=== PATIENT | male | born 1940 | race Caucasian/White ===

== ENCOUNTER 2017-01-01 07:26 | Day surgery (SDC) | payer MEDICARE ==
[~2017-01-01 07:26] MED LIST: Buffered Lidocaine 0.9% SYRIN* 5 ML/SYR SYRINGE INTRADERM ONE
[2017-01-01] MEDS ORDERED: ceFAZolin 2 GM in 100 MLS NS (*) BAG IVPB ONE (08:12)
[2017-01-01] MEDS ORDERED: Mineral Oil Sterile, TOPICAL* 25 ML BTL ONE (08:48)
[2017-01-01] MEDS ORDERED: Methylene Blue 0.5 %* 50 MG/10 ML AMP IV ONE (08:48)
[2017-01-01] MEDS ORDERED: KETAMINE HCL* 50 MG/ML 10 ML VIAL ONE (08:49)
[2017-01-01] MEDS ORDERED: Midazolam* 1 MG/ML 2 ML VIAL (2 MG) ONE (08:50)
[2017-01-01] MEDS ORDERED: Propofol* 10 MG/ML 20 ML BTL IV PUSH ONE ×2 (08:51→10:07)
[2017-01-01] MEDS ORDERED: Glycopyrrolate IV* 0.2 MG/ML 1 ML VIAL ONE (08:52)
[2017-01-01] MEDS ORDERED: Lidocaine 2% EPI 1:200000 MPF* 20 ML VIAL ONE (08:55)
[2017-01-01] MEDS ORDERED: Bupivacaine 0.5% W/EPI SDV* 10 ML VIAL INJ ONE (08:55)
[2017-01-01 11:00] VITALS: BP 104/48
== END 2017-01-01 11:03 | disposition home or self-care (01) ==
LOC: OR 07:26
PROVIDERS: ATTEND Plastic Surgery
DX: D04.4 Carcinoma in situ of skin of scalp and neck (principal); E11.9 Type 2 diabetes mellitus without complications; Z79.4 Long term (current) use of insulin; Z94.4 Liver transplant status; I10 Essential (primary) hypertension; J45.909 Unspecified asthma, uncomplicated
CPT/HCPCS: 88305; 88331; 88332; A9270-GY; J2250; J2704

== ENCOUNTER 2017-12-15 11:45 | Emergency (ER) | payer MEDICARE ==
--- NOTE | 2017-12-15 12:42 | ED ---
Skin Complaint - HPI Summary HPI Summary: Patient presents with Lt index finger redness, swelling and itching since Saturday. He reports he was stung by something however he is not sure what that was. Was pushing a piece of equipment into his shed when smoething stung him in the finger quickly - felt sharp pain but nothing left behind. His symptoms have not gotten worse but they are the same and so he came in to get checked out today - was itching alot last night. Denies fever, chills, difficulty breathing or swallowing. He had concerns that a tick may be causing this however he now understands that a tick needs to be attached for a period of time in order to spread lyme - he voices understanding. - History of Current Complaint Chief Complaint: EDRashSkinAbscess Time Seen by Provider: 12/15/17 12:12 Stated Complaint: POSS INSECT BITE ON LT FINGER Hx Obtained From: Patient, Family/Loom Setter - Pain Intensity: 0 - Allergy/Home Medications Allergies/Adverse Reactions: Allergies Allergy/AdvReac Type Severity Reaction Status Date / Time No Known Allergies Allergy Verified 12/15/17 11:53 Home Medications: Home Medications Multivit-Min/FA/Lutein/Zeaxant [Icaps Mv Tablet] 1 each PO DAILY 12/15/17 [ History Confirmed 12/15/17] PMH/Surg Hx/FS Hx/Imm Hx Previously Healthy: Yes Endocrine/Hematology History: Reports: Hx Diabetes - INSULIN DEPENDENT Cardiovascular History: Reports: Hx Hypertension - pt. 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 STACK. RIGHT HERNIA REPAIR 01/1995. BILAT CATARACTS REMOVED 2002. 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 SKIN CANCER REMOVED [facility] [place] Hx Anesthesia Reactions: No - Immunization History Immunizations Up to Date: Yes Infectious Disease History: No Infectious Disease History: Reports: Hx Shingles - 1995 Denies: Traveled Outside the [place] in Last 30 Days - Social History Occupation: Retired Lives: With Family Alcohol Use: None Hx Substance Use: No Substance Use Type: Reports: None Hx Tobacco Use: No Smoking Status (MU): Never Smoked Tobacco Type: Cigars Review of Systems Constitutional: Negative Negative: Fever, Chills, Fatigue Negative: Sore Throat Negative: Shortness Of Breath Negative: Vomiting, Nausea Positive: no symptoms reported Positive: Edema - mild. Negative: Arthralgia, Myalgia, Decreased ROM Positive: Rash Neurological: Negative Positive: Anxious All Other Systems Reviewed And Are Negative: Yes Physical Exam Triage Information Reviewed: Yes Vital Signs On Initial Exam: Initial Vitals Temp Pulse Resp BP Pulse Ox 97.9 F 75 16 113/51 99 12/15/17 11:53 12/15/17 11:53 12/15/17 11:53 12/15/17 11:53 12/15/17 11:53 Vital Signs Reviewed: Yes Appearance: Positive: Well-Appearing, No Pain Distress, Well-Nourished Skin: Positive: Warm, Skin Color Reflects Adequate Perfusion, Dry - 2mm area of macular tissue (pt reports this was the site of entry - had small blister here day 1) - dorsum of Lt index finger and MCP are w/ mild fever to touch, focal mild tissue edema - no skin breakdown - FROM, no streaking, NTTP ENT: Positive: Hearing grossly normal Respiratory/Lung Sounds: Positive: Breath Sounds Present Cardiovascular: Positive: Pulses are Symmetrical in both Upper and Lower Extremities Musculoskeletal: Positive: Normal, Strength/ROM Intact Neurological: Positive: Sensory/Motor Intact Psychiatric: Positive: Normal - concerned but calm and polite Diagnostics - Vital Signs Vital Signs Temp Pulse Resp BP Pulse Ox 12/15/17 11:53 97.9 F 75 16 113/51 99 - Laboratory Lab Statement: Any lab studies that have been ordered have been reviewed, and results considered in the medical decision making process. Course/Dx - Course Course Of Treatment: Given his other medical issue and localized nature of his condition, will tx w/ rest, elevation, ice nad topical anti-itch cream such as diphenhydramine. F/u w/ PCP this week to monitor for of infection as he has diabetes - no infection today. - Diagnoses Provider Diagnoses: Insect bite of finger with local reaction Discharge - Sign-Out/Discharge Documenting (check all that apply): Patient Departure - Discharge Plan Condition: Stable Disposition: HOME Patient Education Materials: Insect Bite or Sting (ED) Referrals: Jefe To MD [Primary Care Provider] - Additional Instructions: Rest, ice, elevate, soak in cool epsom salt water and/or apply anti-itch cream ( ie. calamine topical, etc) Monitor for spread of redness, fever, chills, pain with bending finger - if so, seek medical attention right away. Otherwise, follow-up with PCP this week if symptoms persist. - Billing Disposition and Condition Condition: STABLE Disposition: Home
[2017-12-15 13:18] VITALS: BP 114/60
== END 2017-12-15 13:17 | disposition home or self-care (01) ==
LOC: ED 11:45
DX: S60.461A Insect bite (nonvenomous) of left index finger, initial encounter (principal); W57.XXXA Bitten or stung by nonvenomous insect and other nonvenomous arthropods, initial encounter; Y93.9 Activity, unspecified; Y92.9 Unspecified place or not applicable; E11.9 Type 2 diabetes mellitus without complications; Z79.4 Long term (current) use of insulin; I10 Essential (primary) hypertension; F03.90 Unspecified dementia, unspecified severity, without behavioral disturbance, psychotic disturbance, mood disturbance, and anxiety; Z94.4 Liver transplant status; Z94.7 Corneal transplant status; Z85.828 Personal history of other malignant neoplasm of skin
CPT/HCPCS: 99281

== ENCOUNTER 2022-12-19 17:01 | Inpatient (IN) ==
[2022-12-19] MEDS ORDERED: NS 0.9% 1000 ml BAG 1,000 ML IV ONE ×2 (18:01→19:10)
[2022-12-19] MEDS ORDERED: Acetaminophen IV 1 GM/100ML 1,000 MG/100 ML BAG IV ONE (18:01)
[2022-12-19 18:40] LABS: Hematocrit 34.4 % (38-53); Hemoglobin 11.4 g/dL (13.2-16.3); Mean Corpuscular Hemoglobin 28.2 pg (27-33); Mean Corpuscular Hgb Conc 33.1 g/dL (31-36); Mean Corpuscular Volume 85.2 fL (80-97); Mean Platelet Volume 8.3 fL (7.5-11.2); Platelet Count 330 10^3/uL (150-450); Red Blood Count 4.03 10^6/uL (4.06-5.63); Red Cell Distribution Width 15.2 % (12-17); White Blood Count 17.6 10^3/uL (3.6-10.2)
[2022-12-19 18:49] LABS: Activated Partial Thrombo Time 29.9 seconds (26.0-38.0); INR 1.35 (0.88-1.18)
[2022-12-19 18:57] LABS: Albumin/Globulin Ratio 0.7 (1-3); C Reactive Protein 334.7 mg/L (<8.01); Calcium 8.6 mg/dL (8.6-10.3); Creatinine, Serum 1.16 mg/dL (0.67-1.17); Globulin 4.3 g/dL (2-4); Magnesium 1.6 mg/dL (1.9-2.7); Potassium 3.6 mmol/L (3.5-5.0); Total Bilirubin 0.4 mg/dL (0.2-1.0); Total Protein 7.3 g/dL (6.4-8.9); eGFR CKD-EPI 62.5 (>60)
[2022-12-19] MEDS ORDERED: cefTRIAXone 1 gm/50 mL D5W 1 GM/50 ML BAG IV ONE (19:09)
[2022-12-19] MEDS ORDERED: Azithromycin 500 mg/250 ml NS 500 MG/250 ML BAG IVPB ONE (19:09)
[2022-12-19] MEDS ORDERED: Iodixanol (CONTRAST) 320 MG/ML 100 ML SDV IV ONE (19:20)
[2022-12-19 19:40] LABS: RBC Morphology Normal (Normal)
[2022-12-19 19:41] LABS: ABS Basophils 0.1 10^3/uL (0.0-0.1); ABS Lymphocytes 0.9 10^3/uL (1.0-4.8); ABS Monocytes 0.6 10^3/uL (0.0-1.1); Lymphocyte % 5.3 %
[2022-12-19 20:43] LABS: High Sensitivity Troponin 1 Hr 48 pg/mL (<20)
[2022-12-19] MEDS ORDERED: Lactated Ringers 1000 ml BAG 1,000 ML IV ONE (22:39)
[2022-12-19] MEDS ORDERED: Lactated Ringers 1000 ml BAG IV.FLUID IV ONE (22:54)
[2022-12-20] MEDS ORDERED: Magnesium Sulfate 2 gm BAG 2 GM/50 ML BAG IVPB ONE (00:35)
[2022-12-20] MEDS ORDERED: Enoxaparin 40 MG/0.4 ML SYR SUBCUT SCH (01:00)
[2022-12-20] MEDS: metroNIDAZOLE IV 500 MG/100ML 500 MG/100 ML BAG IVPB SCH ×2 (03:03→11:58)
[2022-12-20 04:38] LABS: Urine Appearance Cloudy; Urine Bilirubin Negative (Negative); Urine Blood 2+ (Negative); Urine Color Yellow; Urine Glucose Negative (Negative); Urine Ketones Trace (Negative); Urine Nitrite Negative (Negative); Urine Protein 1+(30 mg/dL) (Negative); Urine Specific Gravity 1.025 (1.002-1.030); Urine Urobilinogen Negative (Negative)
[2022-12-20 04:41] LABS: Urine Bacteria Absent (Absent); Urine Red Blood Cell 3+(>10/hpf) (Absent); Urine White Blood Cell Trace(0-5/hpf) (Absent); Urine Yeast Present (Absent)
[2022-12-20 05:00] LABS: ABS Basophils 0.1 10^3/uL (0.0-0.1); ABS Lymphocytes 1.9 10^3/uL (1.0-4.8); ABS Monocytes 0.4 10^3/uL (0.0-1.1); ABS Neutrophils 10.7 10^3/uL (1.5-7.6); ABS Nucleated RBC 0.02 10^3/ul; Eosinophil % 0.1 %; Hematocrit 33.7 % (38-53); Hemoglobin 11.5 g/dL (13.2-16.3); Lymphocyte % 14.8 %; Mean Corpuscular Volume 85.5 fL (80-97); Mean Platelet Volume 8.1 fL (7.5-11.2); Nucleated Red Blood Cells % 0.1 /100 WBC (0.0-0.4); Platelet Count 286 10^3/uL (150-450); Red Blood Count 3.94 10^6/uL (4.06-5.63); Red Cell Distribution Width 15.1 % (12-17); White Blood Count 13.1 10^3/uL (3.6-10.2)
[2022-12-20 05:08] LABS: INR 1.44 (0.88-1.18)
[2022-12-20 05:17] LABS: Albumin 2.7 g/dL (3.2-5.2); Albumin/Globulin Ratio 0.7 (1-3); Calcium 8.2 mg/dL (8.6-10.3); Creatinine, Serum 0.92 mg/dL (0.67-1.17); Globulin 3.7 g/dL (2-4); Magnesium 2.7 mg/dL (1.9-2.7); Potassium 3.4 mmol/L (3.5-5.0); Total Bilirubin 0.3 mg/dL (0.2-1.0); Total Protein 6.4 g/dL (6.4-8.9); eGFR CKD-EPI 82.5 (>60)
[2022-12-20] MEDS: KCL 20 MEQ/100 ML IVPREMIX 20 MEQ/100 ML BAG IV SCH ×2 (05:56→09:50)
[2022-12-20 05:59] LABS: TSH Ultra Thyroid Stim Horm 1.76 mcIU/mL (0.34-5.60)
[2022-12-20 06:01] LABS: Free T4 1.34 ng/dL (0.61-1.12)
[2022-12-20] MEDS: cefTRIAXone 1 gm/50 mL D5W 1 GM/50 ML BAG IV SCH (10:59)
[2022-12-20] MEDS: Azithromycin 500 mg/250 ml NS 500 MG/250 ML BAG IVPB SCH (11:47)
[2022-12-20] MEDS ORDERED: Potassium Chloride LIQUID 20 MEQ/15 ML LIQUID PO ONE (11:49)
[2022-12-20] MEDS ORDERED: D5LR 20 MEQ KCL 1000 ml BAG 1,000 ML IV SCH (17:00)
[2022-12-20] MEDS: SIROLIMUS 1 MG PO SCH (18:56)
[2022-12-20] MEDS: Enoxaparin 40 MG/0.4 ML SYR SUBCUT SCH (20:47)
[2022-12-21] MEDS ORDERED: Dextrose 50% Syringe 50 ml 25 GM/50 ML SYRINGE IV PUSH PRN (01:24)
[2022-12-21 07:03] LABS: ABS Basophils 0.1 10^3/uL (0.0-0.1); ABS Lymphocytes 1.4 10^3/uL (1.0-4.8); ABS Monocytes 0.5 10^3/uL (0.0-1.1); ABS Neutrophils 7.8 10^3/uL (1.5-7.6); Eosinophil % 0.1 %; Hemoglobin 10.4 g/dL (13.2-16.3); Lymphocyte % 14.5 %; Mean Corpuscular Hgb Conc 33.5 g/dL (31-36); Mean Corpuscular Volume 86.3 fL (80-97); Mean Platelet Volume 8.4 fL (7.5-11.2); Platelet Count 290 10^3/uL (150-450); Red Blood Count 3.59 10^6/uL (4.06-5.63); White Blood Count 9.8 10^3/uL (3.6-10.2)
[2022-12-21 07:11] LABS: INR 1.51 (0.88-1.18)
[2022-12-21 07:20] LABS: Albumin 2.4 g/dL (3.2-5.2); Albumin/Globulin Ratio 0.6 (1-3); Calcium 8.8 mg/dL (8.6-10.3); Creatinine, Serum 0.87 mg/dL (0.67-1.17); Globulin 3.7 g/dL (2-4); Potassium 3.5 mmol/L (3.5-5.0); Total Bilirubin 0.2 mg/dL (0.2-1.0); Total Protein 6.1 g/dL (6.4-8.9); eGFR CKD-EPI 85.6 (>60)
[2022-12-21] MEDS: Aspirin EC 81 mg TAB.EC (enteric coated) PO SCH (10:48)
[2022-12-21] MEDS: Azithromycin 500 mg/250 ml NS 500 MG/250 ML BAG IVPB SCH (11:52)
[2022-12-21] MEDS: cefTRIAXone 1 gm/50 mL D5W 1 GM/50 ML BAG IV SCH (11:54)
[2022-12-21] MEDS: SIROLIMUS 1 MG PO SCH (11:54)
[2022-12-21] MEDS: Enoxaparin 40 MG/0.4 ML SYR SUBCUT SCH (20:57)
[2022-12-22 06:57] LABS: ABS Monocytes 0.5 10^3/uL (0.0-1.1); ABS Neutrophils 4.6 10^3/uL (1.5-7.6); Eosinophil % 0.5 %; Hematocrit 26.8 % (38-53); Lymphocyte % 27.7 %; Mean Corpuscular Hgb Conc 33.5 g/dL (31-36); Mean Corpuscular Volume 86.6 fL (80-97); Mean Platelet Volume 8.5 fL (7.5-11.2); Platelet Count 273 10^3/uL (150-450); Red Blood Count 3.09 10^6/uL (4.06-5.63); Red Cell Distribution Width 15.3 % (12-17); White Blood Count 7.1 10^3/uL (3.6-10.2)
[2022-12-22 07:03] LABS: INR 1.33 (0.88-1.18)
[2022-12-22 07:17] LABS: Albumin 2.4 g/dL (3.2-5.2); Albumin/Globulin Ratio 0.8 (1-3); Calcium 8.4 mg/dL (8.6-10.3); Creatinine, Serum 0.79 mg/dL (0.67-1.17); Globulin 3.1 g/dL (2-4); Magnesium 1.7 mg/dL (1.9-2.7); Potassium 3.9 mmol/L (3.5-5.0); Total Bilirubin 0.3 mg/dL (0.2-1.0); Total Protein 5.5 g/dL (6.4-8.9); eGFR CKD-EPI 88.1 (>60)
[2022-12-22] MEDS ORDERED: Magnesium Sulfate 2 gm BAG 2 GM/50 ML BAG IVPB ONE (08:17)
[2022-12-22] MEDS: Aspirin EC 81 mg TAB.EC (enteric coated) PO SCH (08:52)
[2022-12-22] MEDS: cefTRIAXone 1 gm/50 mL D5W 1 GM/50 ML BAG IV SCH (08:53)
[2022-12-22] MEDS: SIROLIMUS 1 MG PO SCH (08:53)
[2022-12-22] MEDS: Lactulose 30 ml UDC PO SCH ×2 (09:07→22:27)
[2022-12-22] MEDS ORDERED: Lactated Ringers 1000 ml BAG 1,000 ML IV ONE (10:16)
[2022-12-22 12:22] LABS: Sirolimus 3.6 ng/mL
[2022-12-22] MEDS: Acetaminophen IV 1 GM/100ML 1,000 MG/100 ML BAG IV PRN (22:06)
[2022-12-22] MEDS: Enoxaparin 40 MG/0.4 ML SYR SUBCUT SCH (22:11)
[2022-12-22] MEDS: Senna TAB 8.6 mg TAB PO SCH (22:24)
[2022-12-23 06:48] LABS: ABS Basophils 0.1 10^3/uL (0.0-0.1); ABS Eosinophils 0.2 10^3/uL (0.0-0.5); ABS Lymphocytes 2.1 10^3/uL (1.0-4.8); ABS Monocytes 0.4 10^3/uL (0.0-1.1); ABS Neutrophils 3.2 10^3/uL (1.5-7.6); ABS Nucleated RBC 0.01 10^3/ul; Hematocrit 30.2 % (38-53); Hemoglobin 10.2 g/dL (13.2-16.3); Mean Corpuscular Hemoglobin 28.9 pg (27-33); Mean Corpuscular Hgb Conc 33.9 g/dL (31-36); Mean Corpuscular Volume 85.4 fL (80-97); Mean Platelet Volume 8.5 fL (7.5-11.2); Nucleated Red Blood Cells % 0.1 /100 WBC (0.0-0.4); Platelet Count 300 10^3/uL (150-450); Red Blood Count 3.53 10^6/uL (4.06-5.63); Red Cell Distribution Width 15.3 % (12-17); White Blood Count 5.9 10^3/uL (3.6-10.2)
[2022-12-23 06:52] LABS: INR 1.11 (0.88-1.18)
[2022-12-23 07:02] LABS: Albumin 2.4 g/dL (3.2-5.2); Albumin/Globulin Ratio 0.7 (1-3); Calcium 8.7 mg/dL (8.6-10.3); Creatinine, Serum 0.84 mg/dL (0.67-1.17); Globulin 3.5 g/dL (2-4); Magnesium 1.8 mg/dL (1.9-2.7); Potassium 3.8 mmol/L (3.5-5.0); Total Bilirubin 0.3 mg/dL (0.2-1.0); Total Protein 5.9 g/dL (6.4-8.9); eGFR CKD-EPI 86.5 (>60)
[2022-12-23] MEDS ORDERED: Polyethylene Glycol 3350 17 GM PACKET PO SCH (08:00)
[2022-12-23] MEDS: Aspirin EC 81 mg TAB.EC (enteric coated) PO SCH (09:29)
[2022-12-23] MEDS: Lactulose 30 ml UDC PO SCH ×2 (09:29→21:36)
[2022-12-23] MEDS: SIROLIMUS 1 MG PO SCH (09:33)
[2022-12-23] MEDS ORDERED: Magnesium Sulfate 2 gm BAG 2 GM/50 ML BAG IVPB ONE (16:52)
[2022-12-23] MEDS: Enoxaparin 40 MG/0.4 ML SYR SUBCUT SCH (21:36)
[2022-12-23] MEDS: Senna TAB 8.6 mg TAB PO SCH (21:37)
[2022-12-24] MEDS: Acetaminophen IV 1 GM/100ML 1,000 MG/100 ML BAG IV PRN (03:22)
[2022-12-24 06:08] LABS: ABS Eosinophils 0.2 10^3/uL (0.0-0.5); ABS Lymphocytes 1.9 10^3/uL (1.0-4.8); ABS Monocytes 0.4 10^3/uL (0.0-1.1); Eosinophil % 3.4 %; Hematocrit 27.2 % (38-53); Hemoglobin 9.2 g/dL (13.2-16.3); Lymphocyte % 34.9 %; Mean Corpuscular Hemoglobin 29.2 pg (27-33); Mean Corpuscular Hgb Conc 33.9 g/dL (31-36); Mean Corpuscular Volume 86.2 fL (80-97); Mean Platelet Volume 8.5 fL (7.5-11.2); Nucleated Red Blood Cells % 0.1 /100 WBC (0.0-0.4); Platelet Count 300 10^3/uL (150-450); Red Blood Count 3.15 10^6/uL (4.06-5.63); Red Cell Distribution Width 15.2 % (12-17); White Blood Count 5.6 10^3/uL (3.6-10.2)
[2022-12-24 06:14] LABS: INR 1.16 (0.88-1.18)
[2022-12-24 06:22] LABS: Albumin 2.3 g/dL (3.2-5.2); Albumin/Globulin Ratio 0.7 (1-3); Calcium 8.4 mg/dL (8.6-10.3); Creatinine, Serum 0.67 mg/dL (0.67-1.17); Globulin 3.4 g/dL (2-4); Magnesium 1.9 mg/dL (1.9-2.7); Potassium 3.9 mmol/L (3.5-5.0); Total Bilirubin 0.3 mg/dL (0.2-1.0); Total Protein 5.7 g/dL (6.4-8.9); eGFR CKD-EPI 92.6 (>60)
[2022-12-24] MEDS: Lactulose 30 ml UDC PO SCH ×3 (08:10→20:29)
[2022-12-24] MEDS: SIROLIMUS 1 MG PO SCH (08:10)
[2022-12-24] MEDS: Aspirin EC 81 mg TAB.EC (enteric coated) PO SCH (08:10)
[2022-12-24] MEDS: Senna TAB 8.6 mg TAB PO SCH (20:21)
[2022-12-24] MEDS: Enoxaparin 40 MG/0.4 ML SYR SUBCUT SCH (20:22)
[2022-12-25] MEDS: Aspirin EC 81 mg TAB.EC (enteric coated) PO SCH (09:00)
[2022-12-25] MEDS: SIROLIMUS 1 MG PO SCH (10:07)
[2022-12-25] MEDS: Lactulose 30 ml UDC PO SCH ×2 (10:07→10:16)
[2022-12-25 12:21] VITALS: BP 108/53
== END 2022-12-25 14:30 | DRG 871 ==
LOC: ED 17:01 → EDHOLD 22:37 → SUATTDRO 22:37 → MEDTELE 12-20 15:41
PROVIDERS: ADMIT Internal Medicine; ATTEND Internal Medicine

== ENCOUNTER 2022-12-30 19:06 | Inpatient (IN) ==
[2022-12-30] MEDS ORDERED: NS 0.9% 1000 ml BAG 1,000 ML IV ONE (19:25)
[2022-12-30] MEDS ORDERED: Piperacillin/Tazobac 3.375 BAG 3.375 GM/100 ML BAG IV ONE (19:35)
[2022-12-30 19:45] LABS: ABS Lymphocytes 0.3 10^3/uL (1.0-4.8); ABS Monocytes 0.5 10^3/uL (0.0-1.1); Eosinophil % 0.1 %; Hematocrit 32.6 % (38-53); Hemoglobin 10.5 g/dL (13.2-16.3); Lymphocyte % 2.6 %; Mean Corpuscular Hemoglobin 28.2 pg (27-33); Mean Corpuscular Hgb Conc 32.1 g/dL (31-36); Mean Corpuscular Volume 87.9 fL (80-97); Mean Platelet Volume 8.5 fL (7.5-11.2); Platelet Count 559 10^3/uL (150-450); Red Blood Count 3.71 10^6/uL (4.06-5.63); White Blood Count 12.9 10^3/uL (3.6-10.2)
[2022-12-30] MEDS ORDERED: Lorazepam PYXIS KEY PRN (19:45)
[2022-12-30] MEDS ORDERED: LORazepam 2 mg VIAL 1 ml IV PUSH ONE (19:45)
[2022-12-30 19:49] LABS: PCO2 Arterial 48 mmHg (35-45)
[2022-12-30 19:52] LABS: PO2 Arterial 42 mmHg (80-100)
[2022-12-30 19:54] LABS: Activated Partial Thrombo Time 30.5 seconds (26.0-38.0); INR 1.49 (0.88-1.18)
[2022-12-30 20:04] LABS: Albumin 2.7 g/dL (3.2-5.2); Albumin/Globulin Ratio 0.6 (1-3); C Reactive Protein 450.74 mg/L (<8.01); Creatinine, Serum 1.79 mg/dL (0.67-1.17); Globulin 4.6 g/dL (2-4); Potassium 4.8 mmol/L (3.5-5.0); Total Bilirubin 0.4 mg/dL (0.2-1.0); Total Protein 7.3 g/dL (6.4-8.9); eGFR CKD-EPI 37.1 (>60)
[2022-12-30] MEDS ORDERED: methylPREDNISolone SOD SUCC 125 mg 2 ML VIAL ONE (20:05)
[2022-12-30] MEDS ORDERED: methylPREDNISolone SOD SUCC 125 mg 2 ML VIAL IV ONE (20:07)
[2022-12-30] MEDS ORDERED: Levalbuterol 1.25MG/0.5ML NEB.SOL INH ONE ×2 (20:07→20:08)
[2022-12-30] MEDS ORDERED: Succinylcholine 200 mg VIAL 20 mg/ml 10 ml VIAL (200 mg) ONE (21:04)
[2022-12-30] MEDS ORDERED: Propofol 10 mg/ml 100 ML BTL 1,000 MG/100 ML BTL ONE (21:12)
[2022-12-30] MEDS: Propofol 10 mg/ml 100 ML BTL 1,000 MG/100 ML BTL IV SCH (21:12)
[2022-12-30] MEDS ORDERED: Etomidate 20 mg/10 ml 2 MG/ML 10 ml VIAL IV ONE (21:23)
[2022-12-30] MEDS ORDERED: Succinylcholine 200 mg VIAL 20 mg/ml 10 ml VIAL (200 mg) IV ONE (21:23)
[2022-12-30] MEDS ORDERED: Propofol 10 mg/ml 100 ML BTL 1,000 MG/100 ML BTL IV SCH (22:00)
[2022-12-30] MEDS ORDERED: Ondansetron 4 mg VIAL 2 MG/ML 2 ml VIAL IV PRN (22:17)
[2022-12-30] MEDS ORDERED: Vancomycin 1,000 MG in NS 0.9% 250 ml 250 ML IVPB ONE (22:20)
[2022-12-30] MEDS ORDERED: Iodixanol (CONTRAST) 320 MG/ML 100 ML SDV IV ONE (22:59)
[2022-12-30] MEDS ORDERED: Enoxaparin 40 MG/0.4 ML SYR SUBCUT SCH (23:00)
[2022-12-30] MEDS ORDERED: Vancomycin per Pharmacy 1 EA NOTE FOLLOW UP SCH (23:00)
[2022-12-30] MEDS ORDERED: Dextrose 50% Syringe 50 ml 25 GM/50 ML SYRINGE IV PUSH PRN (23:24)
[2022-12-30] MEDS ORDERED: Norepinephrine 16MCG/ML BAGD5W 4,000 MCG/250 ML BAG IV ONE (23:26)
[2022-12-31] MEDS: Norepinephrine 16MCG/ML BAGD5W 4,000 MCG/250 ML BAG IV SCH ×4 (00:10→20:16)
[2022-12-31] MEDS ORDERED: Lactated Ringers 1000 ml BAG 1,000 ML IV ONE (01:01)
[2022-12-31] MEDS: Chlorhexidine MOUTHWASH 0.12% 15 ML UDC TOPICAL SCH ×7 (01:26→22:32)
[2022-12-31] MEDS: Pantoprazole VIAL 40 MG VIAL IV SCH ×2 (01:26→22:32)
[2022-12-31] MEDS ORDERED: Enoxaparin 40 MG/0.4 ML SYR ONE (01:31)
[2022-12-31] MEDS ORDERED: Enoxaparin 30 MG/0.3 ML SYR SUBCUT SCH (02:00)
[2022-12-31 02:03] LABS: Urine Appearance Turbid; Urine Bilirubin Negative (Negative); Urine Blood 2+ (Negative); Urine Color Amber; Urine Glucose 1+(50 mg/dL) (Negative); Urine Ketones Negative (Negative); Urine Nitrite Negative (Negative); Urine Protein 2+(100 mg/dL) (Negative); Urine Specific Gravity 1.026 (1.002-1.030); Urine Urobilinogen Negative (Negative)
[2022-12-31 02:34] LABS: Urine Bacteria Absent (Absent); Urine Granular Casts Present (Absent); Urine Red Blood Cell 3+(>10/hpf) (Absent); Urine Squamous Epithelial Cell Present (Absent); Urine White Blood Cell Trace(0-5/hpf) (Absent)
[2022-12-31 03:47] LABS: PCO2 Arterial 47 mmHg (35-45); PO2 Arterial 185 mmHg (80-100)
[2022-12-31 04:40] LABS: ABS Eosinophils 0.1 10^3/uL (0.0-0.5); ABS Lymphocytes 0.4 10^3/uL (1.0-4.8); ABS Monocytes 0.4 10^3/uL (0.0-1.1); ABS Neutrophils 10.6 10^3/uL (1.5-7.6); ABS Nucleated RBC 0.01 10^3/ul; Eosinophil % 0.6 %; Hemoglobin 8.7 g/dL (13.2-16.3); Lymphocyte % 3.4 %; Mean Corpuscular Hemoglobin 28.7 pg (27-33); Mean Corpuscular Hgb Conc 33.4 g/dL (31-36); Mean Platelet Volume 8.2 fL (7.5-11.2); Nucleated Red Blood Cells % 0.1 /100 WBC (0.0-0.4); Platelet Count 468 10^3/uL (150-450); Red Blood Count 3.02 10^6/uL (4.06-5.63); Red Cell Distribution Width 15.5 % (12-17); White Blood Count 11.5 10^3/uL (3.6-10.2)
[2022-12-31 04:56] LABS: Calcium 7.8 mg/dL (8.6-10.3); Creatinine, Serum 1.73 mg/dL (0.67-1.17); Magnesium 1.6 mg/dL (1.9-2.7); Potassium 4.2 mmol/L (3.5-5.0); eGFR CKD-EPI 38.4 (>60)
[2022-12-31] MEDS ORDERED: Magnesium Sulfate 2 gm BAG 2 GM/50 ML BAG IVPB ONE (05:13)
[2022-12-31] MEDS ORDERED: ZOSYN 3.375 GM x ONE DOSE over 30 miuntes IV (11:00)
[2022-12-31] MEDS ORDERED: Zosyn per Pharmacy NOTE FOLLOW UP SCH (11:00)
[2022-12-31] MEDS: NS 0.9% 1000 ml BAG 1,000 ML IV SCH (14:56)
[2022-12-31] MEDS: ZOSYN 3.375 GM Q8H per EXTENDED INFUSION IV SCH (17:17)
[2022-12-31] MEDS ORDERED: Vancomycin 750 MG in NS 0.9% 250 ML IVPB SCH (20:00)
[2022-12-31] MEDS: Enoxaparin 30 MG/0.3 ML SYR SUBCUT SCH (21:01)
[2022-12-31] MEDS ORDERED: Enoxaparin 30 MG/0.3 ML SYR SUBCUT ONE (22:00)
[2023-01-01] MEDS: ZOSYN 3.375 GM Q8H per EXTENDED INFUSION IV SCH ×3 (00:26→16:35)
[2023-01-01] MEDS: NS 0.9% 1000 ml BAG 1,000 ML IV SCH (01:05)
[2023-01-01] MEDS: Propofol 10 mg/ml 100 ML BTL 1,000 MG/100 ML BTL IV SCH (02:11)
[2023-01-01] MEDS: Chlorhexidine MOUTHWASH 0.12% 15 ML UDC TOPICAL SCH ×6 (02:50→23:03)
[2023-01-01] MEDS: Norepinephrine 16MCG/ML BAGD5W 4,000 MCG/250 ML BAG IV SCH ×3 (02:56→17:54)
[2023-01-01 04:00] LABS: ABS Eosinophils 0.1 10^3/uL (0.0-0.5); ABS Lymphocytes 0.3 10^3/uL (1.0-4.8); ABS Monocytes 0.6 10^3/uL (0.0-1.1); ABS Neutrophils 10.6 10^3/uL (1.5-7.6); ABS Nucleated RBC 0.01 10^3/ul; Eosinophil % 0.5 %; Mean Corpuscular Hemoglobin 28.3 pg (27-33); Mean Corpuscular Hgb Conc 33.1 g/dL (31-36); Mean Corpuscular Volume 85.5 fL (80-97); Mean Platelet Volume 8.2 fL (7.5-11.2); Nucleated Red Blood Cells % 0.1 /100 WBC (0.0-0.4); Platelet Count 388 10^3/uL (150-450); Red Blood Count 2.81 10^6/uL (4.06-5.63); Red Cell Distribution Width 15.9 % (12-17); White Blood Count 11.6 10^3/uL (3.6-10.2)
[2023-01-01 04:17] LABS: Calcium 7.6 mg/dL (8.6-10.3); Creatinine, Serum 2.01 mg/dL (0.67-1.17); Phosphorus 2.8 mg/dL (2.5-5.0); Potassium 3.9 mmol/L (3.5-5.0); eGFR CKD-EPI 32.1 (>60)
[2023-01-01] MEDS: Dexmedetomidine 1,000 MCG in NS 0.9% 250 ml 240 ML IV SCH (11:29)
[2023-01-01] MEDS: fentaNYL 100 mcg/2 ml 50 MCG/ML VIAL IV SLOW PU PRN ×2 (11:35→17:33)
[2023-01-01 18:02] LABS: Sirolimus 11.3 ng/mL
[2023-01-01] MEDS: Enoxaparin 30 MG/0.3 ML SYR SUBCUT SCH (21:13)
[2023-01-01] MEDS: Pantoprazole VIAL 40 MG VIAL IV SCH (23:03)
[2023-01-02] MEDS: ZOSYN 3.375 GM Q8H per EXTENDED INFUSION IV SCH ×3 (00:46→16:56)
[2023-01-02] MEDS: Propofol 10 mg/ml 100 ML BTL 1,000 MG/100 ML BTL IV SCH ×2 (02:07→18:43)
[2023-01-02] MEDS: Chlorhexidine MOUTHWASH 0.12% 15 ML UDC TOPICAL SCH ×6 (03:06→23:26)
[2023-01-02 04:07] LABS: ABS Lymphocytes 0.3 10^3/uL (1.0-4.8); ABS Monocytes 0.3 10^3/uL (0.0-1.1); ABS Neutrophils 8.3 10^3/uL (1.5-7.6); Eosinophil % 0.1 %; Hematocrit 24.4 % (38-53); Hemoglobin 8.3 g/dL (13.2-16.3); Lymphocyte % 3.9 %; Mean Corpuscular Hemoglobin 28.9 pg (27-33); Mean Corpuscular Hgb Conc 34.1 g/dL (31-36); Mean Corpuscular Volume 84.7 fL (80-97); Mean Platelet Volume 8.4 fL (7.5-11.2); Platelet Count 378 10^3/uL (150-450); Red Blood Count 2.88 10^6/uL (4.06-5.63); Red Cell Distribution Width 15.6 % (12-17)
[2023-01-02 04:22] LABS: Calcium 7.5 mg/dL (8.6-10.3); Potassium 3.7 mmol/L (3.5-5.0); eGFR CKD-EPI 32.3 (>60)
[2023-01-02] MEDS: Dexmedetomidine 1,000 MCG in NS 0.9% 250 ml 240 ML IV SCH ×2 (06:13→22:05)
[2023-01-02] MEDS: Norepinephrine 16MCG/ML BAGD5W 4,000 MCG/250 ML BAG IV SCH (07:37)
[2023-01-02 08:21] LABS: C Reactive Protein 289.39 mg/L (<8.01)
[2023-01-02] MEDS ORDERED: PHENYLEPHRINE DRIP IVPREMIX 50 MG/250 ML BAG IV SCH (15:00)
[2023-01-02] MEDS: Phenylephrine DRIP 0.2 MG/ML in NS 0.9% 250 ML (PHA mix) IV SCH ×2 (15:09→23:25)
[2023-01-02] MEDS ORDERED: Acetaminophen IV 1 GM/100ML 1,000 MG/100 ML BAG IV PRN (15:21)
[2023-01-02] MEDS: SIROLIMUS 1 MG/ML NG TUBE SCH (16:58)
[2023-01-02] MEDS: Dextran 70/Hypromellose Tears Eye Drops 15 ml BTL (for Artificials Tears) BOTH EYES PRN (17:33)
[2023-01-02] MEDS ORDERED: SIROLIMUS 1 MG/ML NG TUBE SCH (18:00)
[2023-01-02] MEDS ORDERED: Vancomycin Trough Check NOTE FOLLOW UP ONE (19:30)
[2023-01-02] MEDS: Enoxaparin 30 MG/0.3 ML SYR SUBCUT SCH (21:20)
[2023-01-02] MEDS: Pantoprazole VIAL 40 MG VIAL IV SCH (23:30)
[2023-01-03] MEDS: ZOSYN 3.375 GM Q8H per EXTENDED INFUSION IV SCH ×2 (01:03→11:38)
[2023-01-03] MEDS: Chlorhexidine MOUTHWASH 0.12% 15 ML UDC TOPICAL SCH ×6 (03:14→22:39)
[2023-01-03] MEDS: Phenylephrine DRIP 0.2 MG/ML in NS 0.9% 250 ML (PHA mix) IV SCH ×5 (04:45→21:38)
[2023-01-03 06:07] LABS: Calcium 7.7 mg/dL (8.6-10.3); Creatinine, Serum 2.21 mg/dL (0.67-1.17); Potassium 3.5 mmol/L (3.5-5.0); eGFR CKD-EPI 28.7 (>60)
[2023-01-03 06:14] LABS: Hematocrit 26.7 % (38-53); Hemoglobin 9.1 g/dL (13.2-16.3); Mean Corpuscular Hemoglobin 28.8 pg (27-33); Mean Corpuscular Hgb Conc 34.1 g/dL (31-36); Mean Corpuscular Volume 84.4 fL (80-97); Mean Platelet Volume 8.7 fL (7.5-11.2); Platelet Count 362 10^3/uL (150-450); Red Blood Count 3.17 10^6/uL (4.06-5.63); White Blood Count 9.3 10^3/uL (3.6-10.2)
[2023-01-03] MEDS ORDERED: Norepinephrine 16MCG/ML BAGD5W 4,000 MCG/250 ML BAG IV ONE (06:24)
[2023-01-03] MEDS: Norepinephrine 16MCG/ML BAGD5W 4,000 MCG/250 ML BAG IV SCH ×4 (06:29→21:36)
[2023-01-03 06:50] LABS: ABS Lymphocytes 0.6 10^3/uL (1.0-4.8); ABS Monocytes 0.2 10^3/uL (0.0-1.1); ABS Neutrophils 8.4 10^3/uL (1.5-7.6); ABS Nucleated RBC 0.01 10^3/ul; Eosinophil % 0.1 %; Lymphocyte % 6.3 %; Nucleated Red Blood Cells % 0.1 /100 WBC (0.0-0.4)
[2023-01-03] MEDS: Dextran 70/Hypromellose Tears Eye Drops 15 ml BTL (for Artificials Tears) BOTH EYES PRN ×4 (07:44→21:35)
[2023-01-03] MEDS ORDERED: Vancomycin 1,000 MG in NS 0.9% 250 ml 250 ML IVPB ONE (08:01)
[2023-01-03] MEDS ORDERED: Vancomycin per Pharmacy 1 EA NOTE FOLLOW UP SCH (09:00)
[2023-01-03] MEDS: fentaNYL 100 mcg/2 ml 50 MCG/ML VIAL IV SLOW PU PRN ×3 (09:25→16:31)
[2023-01-03 10:18] LABS: Urine Appearance Turbid; Urine Bilirubin Negative (Negative); Urine Blood 2+ (Negative); Urine Color Yellow; Urine Glucose Negative (Negative); Urine Ketones Negative (Negative); Urine Nitrite Negative (Negative); Urine Protein 2+(100 mg/dL) (Negative); Urine Specific Gravity 1.016 (1.002-1.030); Urine Urobilinogen Negative (Negative)
[2023-01-03 10:23] LABS: Urine Bacteria 1+ (Absent); Urine Red Blood Cell 3+(>10/hpf) (Absent); Urine White Blood Cell Trace(0-5/hpf) (Absent)
[2023-01-03] MEDS ORDERED: Cefepime ADVAN 1 GM in NS 0.9% 50 ML 50 ML IVPB SCH (11:00)
[2023-01-03] MEDS ORDERED: Albuterol/Ipratropium NEB.SOL (2.5/0.5 MG) 3 ML NEB.SOLN ONE (11:15)
[2023-01-03] MEDS: Dexmedetomidine 1,000 MCG in NS 0.9% 250 ml 240 ML IV SCH (11:27)
[2023-01-03] MEDS: Albuterol/Ipratropium NEB.SOL (2.5/0.5 MG) 3 ML NEB.SOLN INH SCH ×3 (11:56→22:02)
[2023-01-03] MEDS: Acetaminophen IV 1 GM/100ML 1,000 MG/100 ML BAG IV PRN ×2 (12:09→19:49)
[2023-01-03] MEDS: Cefepime 1 GM in Dextrose 1 GM/50 ML BAG IV SCH (12:52)
[2023-01-03 13:17] LABS: Urine Appearance Turbid; Urine Bilirubin Negative (Negative); Urine Blood 2+ (Negative); Urine Color Yellow; Urine Glucose 1+(50 mg/dL) (Negative); Urine Ketones Negative (Negative); Urine Nitrite Negative (Negative); Urine Protein 2+(100 mg/dL) (Negative); Urine Specific Gravity 1.018 (1.002-1.030); Urine Urobilinogen Negative (Negative)
[2023-01-03] MEDS ORDERED: fentaNYL 100 mcg/2 ml 50 MCG/ML VIAL ONE (13:17)
[2023-01-03 13:25] LABS: Urine Bacteria Absent (Absent); Urine Red Blood Cell 3+(>10/hpf) (Absent); Urine Squamous Epithelial Cell Present (Absent); Urine White Blood Cell Trace(0-5/hpf) (Absent)
[2023-01-03] MEDS ORDERED: fentaNYL INFUSION 50 mcg/mL VL 2,500 MCG/50 ML VIAL IV SCH (14:00)
[2023-01-03] MEDS ORDERED: NORMOSOL-R pH 7.4 1000 mL BAG 500 ML IV ONE (17:00)
[2023-01-03] MEDS: fentaNYL INFUSION 50 mcg/mL VL 2,500 MCG/50 ML VIAL IV SCH (18:00)
[2023-01-03] MEDS: SIROLIMUS 1 MG/ML NG TUBE SCH (18:38)
[2023-01-03] MEDS: Propofol 10 mg/ml 100 ML BTL 1,000 MG/100 ML BTL IV SCH (19:31)
[2023-01-03] MEDS: Enoxaparin 30 MG/0.3 ML SYR SUBCUT SCH (22:40)
[2023-01-03] MEDS: Pantoprazole VIAL 40 MG VIAL IV SCH (22:40)
[2023-01-04] MEDS: Cefepime 1 GM in Dextrose 1 GM/50 ML BAG IV SCH ×2 (00:01→13:17)
[2023-01-04] MEDS: Dexmedetomidine 1,000 MCG in NS 0.9% 250 ml 240 ML IV SCH ×2 (00:47→13:58)
[2023-01-04] MEDS: Phenylephrine DRIP 0.2 MG/ML in NS 0.9% 250 ML (PHA mix) IV SCH ×6 (02:09→22:28)
[2023-01-04] MEDS: Chlorhexidine MOUTHWASH 0.12% 15 ML UDC TOPICAL SCH ×6 (02:42→22:24)
[2023-01-04] MEDS: Norepinephrine 16MCG/ML BAGD5W 4,000 MCG/250 ML BAG IV SCH ×6 (02:42→23:39)
[2023-01-04] MEDS: Albuterol/Ipratropium NEB.SOL (2.5/0.5 MG) 3 ML NEB.SOLN INH SCH (05:31)
[2023-01-04] MEDS: Dextran 70/Hypromellose Tears Eye Drops 15 ml BTL (for Artificials Tears) BOTH EYES PRN (05:35)
[2023-01-04 05:48] LABS: Hematocrit 25.5 % (38-53); Hemoglobin 8.6 g/dL (13.2-16.3); Mean Corpuscular Hemoglobin 28.9 pg (27-33); Mean Corpuscular Hgb Conc 33.6 g/dL (31-36); Mean Corpuscular Volume 85.9 fL (80-97); Mean Platelet Volume 8.5 fL (7.5-11.2); Platelet Count 241 10^3/uL (150-450); Red Blood Count 2.97 10^6/uL (4.06-5.63); Red Cell Distribution Width 16.6 % (12-17)
[2023-01-04] MEDS ORDERED: Vancomycin Random Level NOTE FOLLOW UP ONE (06:00)
[2023-01-04 06:07] LABS: Calcium 7.3 mg/dL (8.6-10.3); Creatinine, Serum 2.58 mg/dL (0.67-1.17); Potassium 3.4 mmol/L (3.5-5.0); eGFR CKD-EPI 23.8 (>60)
[2023-01-04 07:10] LABS: Vancomycin Random 11.9 mcg/mL
[2023-01-04 07:42] LABS: Polychromasia 1+
[2023-01-04 07:46] LABS: ABS Lymphocytes 0.5 10^3/uL (1.0-4.8); ABS Monocytes 0.1 10^3/uL (0.0-1.1); ABS Neutrophils 10.3 10^3/uL (1.5-7.6); Eosinophil % 0.1 %; Lymphocyte % 4.8 %
[2023-01-04] MEDS: fentaNYL INFUSION 50 mcg/mL VL 2,500 MCG/50 ML VIAL IV SCH (09:35)
[2023-01-04] MEDS: KCL 20 MEQ/100 ML IVPREMIX 20 MEQ/100 ML BAG IV SCH ×3 (09:41→15:55)
[2023-01-04 10:13] LABS: Resp Rate 18
[2023-01-04 10:15] LABS: PCO2 Arterial 40 mmHg (35-45); PO2 Arterial 81 mmHg (80-100)
[2023-01-04] MEDS ORDERED: Vancomycin 750 MG in NS 0.9% 250 ML IVPB ONE (12:30)
[2023-01-04 12:50] LABS: Albumin 2.1 g/dL (3.2-5.2); Albumin/Globulin Ratio 0.6 (1-3); Direct Bilirubin 0.1 mg/dL (0.03-0.18); Globulin 3.3 g/dL (2-4); Indirect Bilirubin 0.2 mg/dL (0.3-1.0); Total Bilirubin 0.3 mg/dL (0.2-1.0); Total Protein 5.4 g/dL (6.4-8.9)
[2023-01-04] MEDS: SIROLIMUS 1 MG/ML NG TUBE SCH (16:44)
[2023-01-04] MEDS ORDERED: Caspofungin(NF) 70 MG in NS 0.9% 250 ml 250 ML IV ONE (17:35)
[2023-01-04] MEDS ORDERED: methylPREDNISolone SOD SUCC 125 mg 2 ML VIAL IV ONE (17:38)
[2023-01-04] MEDS ORDERED: Hydrocortisone INJ 100 MG/2ML 2 ML VIAL IV ONE (17:43)
[2023-01-04] MEDS ORDERED: Anidulafungin 200 MG in NS 0.9% 200 ML IVPB ONE (18:00)
[2023-01-04] MEDS ORDERED: VASOPRESSIN IVPREMIX BTL 40 UNIT/100 ML BTL IV ONE (18:01)
[2023-01-04] MEDS ORDERED: Rocuronium 50 mg VIAL 10 mg/ml 5 ml VIAL (50 mg) IV ONE (18:12)
[2023-01-04] MEDS ORDERED: Rocuronium 50 mg VIAL 10 mg/ml 5 ml VIAL (50 mg) ONE (18:12)
[2023-01-04] MEDS ORDERED: Midazolam 2 mg/2 ml VIAL 1 mg/ml 2 ml VIAL (2 mg) ONE (18:12)
[2023-01-04] MEDS ORDERED: Midazolam 2 mg/2 ml VIAL 1 mg/ml 2 ml VIAL (2 mg) IV SLOW PU ONE (18:12)
[2023-01-04] MEDS ORDERED: Vasopressin 100 UNITS in D5W 250 ml BAG 245 ML IV SCH (18:15)
[2023-01-04] MEDS: VASOPRESSIN IVPREMIX BTL 40 UNIT/100 ML BTL IV SCH (18:16)
[2023-01-04 18:22] LABS: PCO2 Arterial 44 mmHg (35-45); PO2 Arterial 91 mmHg (80-100)
[2023-01-04] MEDS: Midazolam 50 MG PREMIX IV DRIP 50 ML IV SCH (18:53)
[2023-01-04] MEDS ORDERED: methylPREDNISolone SOD SUCC 40 mg/ml 1 ml VIAL IV SCH (21:50)
[2023-01-04] MEDS: Pantoprazole VIAL 40 MG VIAL IV SCH (22:24)
[2023-01-04] MEDS: Enoxaparin 30 MG/0.3 ML SYR SUBCUT SCH (22:24)
[2023-01-05] MEDS: Dextran 70/Hypromellose Tears Eye Drops 15 ml BTL (for Artificials Tears) BOTH EYES PRN ×3 (00:58→08:35)
[2023-01-05] MEDS: Hydrocortisone INJ 100 MG/2ML 2 ML VIAL IV SCH ×3 (01:02→12:54)
[2023-01-05] MEDS: Cefepime 1 GM in Dextrose 1 GM/50 ML BAG IV SCH ×2 (01:02→12:59)
[2023-01-05] MEDS: Phenylephrine DRIP 0.2 MG/ML in NS 0.9% 250 ML (PHA mix) IV SCH ×4 (02:57→16:44)
[2023-01-05] MEDS: Norepinephrine 16MCG/ML BAGD5W 4,000 MCG/250 ML BAG IV SCH ×5 (02:58→15:50)
[2023-01-05] MEDS: Chlorhexidine MOUTHWASH 0.12% 15 ML UDC TOPICAL SCH ×4 (02:59→15:05)
[2023-01-05 05:17] LABS: Hematocrit 24.5 % (38-53); Hemoglobin 7.8 g/dL (13.2-16.3); Mean Corpuscular Hemoglobin 28.4 pg (27-33); Mean Corpuscular Volume 88.7 fL (80-97); Mean Platelet Volume 8.8 fL (7.5-11.2); Platelet Count 225 10^3/uL (150-450); Red Blood Count 2.76 10^6/uL (4.06-5.63); Red Cell Distribution Width 17.9 % (12-17)
[2023-01-05] MEDS: Dexmedetomidine 1,000 MCG in NS 0.9% 250 ml 240 ML IV SCH (05:18)
[2023-01-05] MEDS: Midazolam 50 MG PREMIX IV DRIP 50 ML IV SCH (05:21)
[2023-01-05 05:34] LABS: Albumin 1.9 g/dL (3.2-5.2); Albumin/Globulin Ratio 0.5 (1-3); Calcium 7.1 mg/dL (8.6-10.3); Creatinine, Serum 2.91 mg/dL (0.67-1.17); Globulin 3.5 g/dL (2-4); Magnesium 2.1 mg/dL (1.9-2.7); Potassium 4.9 mmol/L (3.5-5.0); Total Bilirubin 0.3 mg/dL (0.2-1.0); Total Protein 5.4 g/dL (6.4-8.9); eGFR CKD-EPI 20.6 (>60)
[2023-01-05 06:10] LABS: ABS Lymphocytes 0.3 10^3/uL (1.0-4.8); ABS Neutrophils 15.7 10^3/uL (1.5-7.6); ABS Nucleated RBC 0.02 10^3/ul; Eosinophil % 0.1 %; Lymphocyte % 1.7 %; Nucleated Red Blood Cells % 0.1 /100 WBC (0.0-0.4)
[2023-01-05] MEDS: VASOPRESSIN IVPREMIX BTL 40 UNIT/100 ML BTL IV SCH (07:17)
[2023-01-05] MEDS: fentaNYL INFUSION 50 mcg/mL VL 2,500 MCG/50 ML VIAL IV SCH (10:12)
[2023-01-05] MEDS ORDERED: Vancomycin Random Level NOTE FOLLOW UP ONE (12:00)
[2023-01-05] MEDS ORDERED: Vancomycin 750 MG in NS 0.9% 250 ML IVPB ONE (15:00)
[2023-01-05] MEDS ORDERED: Lorazepam PYXIS KEY PRN (17:12)
[2023-01-05] MEDS ORDERED: LORazepam 2 mg VIAL 1 ml IV PUSH PRN (17:12)
[2023-01-05] MEDS ORDERED: Morphine 10 MG/ML VIAL (1 ml) IV PRN (17:49)
[2023-01-05] MEDS ORDERED: Morphine 10 MG/ML VIAL (1 ml) IV SCH (18:00)
[2023-01-05] MEDS ORDERED: Anidulafungin 100 MG in NS 0.9% 100 ML IVPB SCH (18:00)
[2023-01-05 18:17] VITALS: BP 69/36
[2023-01-06] MEDS ORDERED: Vancomycin Random Level NOTE FOLLOW UP ONE (14:30)
== END 2023-01-05 18:32 | disposition expired | DRG 871 ==
LOC: ED 19:06 → EDHOLD 22:17 → ICU 22:26
PROVIDERS: ADMIT Surgery Surgical Critical Care; ATTEND Surgery Surgical Critical Care